=== PATIENT | male | born 2005 | race Caucasian/White ===

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

== ENCOUNTER 2024-12-04 16:16 | Emergency (ER) | payer SELFPAY ==
[~2024-12-04] VITALS: Ht 175.2 cm; Wt 65.8 kg
[~2024-12-04 16:16] MED LIST changes: +VIBRAMYCIN100 MG PO
[2024-12-04] MEDS ORDERED: OFLOXACIN 10 ML10 M2 OT (17:17)
== END 2024-12-04 17:26 | disposition home or self-care (01) ==
LOC: ED 16:16
DX: S00.412A Abrasion of left ear, initial encounter (principal); Z88.1 Allergy status to other antibiotic agents; Z79.899 Other long term (current) drug therapy; X58.XXXA Exposure to other specified factors, initial encounter; Y93.89 Activity, other specified; Y92.89 Other specified places as the place of occurrence of the external cause; Y99.8 Other external cause status